=== PATIENT | female | born 2000 | race Caucasian/White ===

== ENCOUNTER 2024-08-14 10:06 | Outpatient (CLI) | payer OTHER, SELFPAY ==
[2024-08-14] MEDS: albuterol 2.5 mg/3 mL Neb INHALATION (10:29)
== END 2024-08-14 10:07 | disposition home or self-care (01) ==
PROVIDERS: Visit Provider Family Medicine
DX: Z02.71 Encounter for disability determination (principal); R94.2 Abnormal results of pulmonary function studies
CPT/HCPCS: 94060; J7613